=== PATIENT | male | born 1975 | race Caucasian/White ===

== ENCOUNTER 2019-02-23 03:18 | Inpatient (IN) ==
[2019-02-23] MEDS ORDERED: DUONEB (A & A) INH ONE (03:29)
--- NOTE | 2019-02-23 03:38 | PROVIDER DOCUMENTATION ---
HPI-Respiratory General - General Chief Complaint: Shortness of Breath Stated Complaint: sob Time Seen by Provider: 02/23/19 03:27 Source: patient Allergies/Adverse Reactions: Patient Allergies Allergy/AdvReac Type Severity Reaction Status Date / Time Penicillins Allergy HIVES Verified 06/17/18 09:33 Home Medications: Home Medication List Medication Instructions Recorded Confirmed Last Taken Type ATORVAstatin [Lipitor] 40 mg PO QHS #180 tab 04/07/18 06/17/18 06/16/18 Rx Carvedilol [Coreg] 6.25 mg PO Q12H #180 tab 04/07/18 06/17/18 06/17/18 Rx Furosemide [Lasix] 40 mg PO DAILY #180 tab 04/07/18 06/17/18 06/17/18 Rx Potassium Chloride E.r. [Klor-Con] 10 meq PO DAILY #180 tab 04/07/18 06/17/18 06/17/18 Rx Clopidogrel Bisulfate [Plavix] 75 mg PO DAILY 05/29/18 05/29/18 Unknown History Albuterol Sulfate [Albuterol 8.5 gm IH Q4-6H PRN PRN #2 06/17/18 Unknown Rx Sulfate Hfa] hfa.[email or web address] Beet Root 1,000 mg PO DAILY 06/17/18 06/17/18 06/17/18 History - History of Present Illness-Resp Nature of Presenting Problem: Patient states that he began to have a cough and wheezing around 6pm yesterday. It has gotten progressively worse Quality of Pain: reports: fullness, tightness Severity in ED: reports: moderate Onset/Duration: reports: other (9 hours ago) Timing: reports: still present Context: denies: recent foreign travel, insect bite (possible tick), recent chemotherapy, multiple patients with similar complaints, recent URI, out of meds, sports/exercise, aspiration/choking, other Exposure: reports: allergen exposure Cough Quality/Degree: reports: no cough Episode Frequency: occasional episodes Current Respiratory Medication Therapy: Initiated see nurses note Modifying Factors: improves with: exertion Associated Symptoms: reports: cough, shortness of breath, short of breath, wheezing Similar Symptoms Previously?: Yes Recently seen or treated by another doctor?: No Review of Systems - Adult - REVIEW OF SYSTEMS - ADULT Constitutional: reports: no symptoms reported Eyes: reports: no symptoms reported Ears, Nose, Mouth & Throat: reports: no symptoms reported Cardiovascular: reports: chest pain Respiratory: reports: see HPI Gastrointestinal: reports: no symptoms reported Genitourinary: reports: no symptoms reported Musculoskeletal: reports: no symptoms reported Integumentary: reports: no symptoms reported Neurological: reports: no symptoms reported Psychiatric: reports: no symptoms reported Endocrine: reports: no symptoms reported Hematologic/Lymphatic: reports: no symptoms reported Allergic/Immunologic: reports: asthma Past History - Adult - PAST MEDICAL HISTORY-ADULT Review of Records: reports: Old Records Reviewed, Nursing Assessment Review Major Childhood Illnesses: reports: denies history Cardiovascular: reports: CAD, HTN, murmur, ND Respiratory: reports: pneumonia Gastrointestinal: reports: denies history Obstetrical/Gynecological: reports: denies history Genitourinary: reports: denies history Musculoskeletal: reports: denies history Neurological: reports: denies history Endocrine/Immune: reports: denies history Other Conditions: reports: denies history - PRIOR SURGERIES/PROCEDURES Surgical/Procedure History: reports: cardiac stent - IMMUNIZATION STATUS Childhood Immunizations: See Nurse Assessment Flu Vaccine: See Nurse Assessment - FAMILY HISTORY Family History: reviewed, not pertinent Physical Exam-General - PHYSICAL EXAM-ADULT Initial Vital Signs Reviewed: Yes - CONSTITUTIONAL General Appearance: moderate distress - EYES Eyes: PERRL/EOMI, pink conjunctivae, anisocoria - HEAD, EARS, NOSE, MOUTH & THROAT HENMT: normocephalic/atraumatic, moist mucous membranes, normal ENT inspection, TMs normal, pharynx normal - NECK Neck: non-tender, full range of motion, supple, normal inspection - RESPIRATORY Respiratory: respiratory distress, rhonchi, wheezing - CARDIOVASCULAR Cardiovascular: normal peripheral pulses, no edema, tachycardia - GASTROINTESTINAL (ABDOMEN) Abdominal Exam: normal bowel sounds, non tender, soft, no organomegaly, no pulsatile mass - LYMPHATIC Lymphatic: no adenopathy - MUSCULOSKELETAL Back Exam: normal inspection, no CVA tenderness, no vertebral tenderness Extremity: normal range of motion, non-tender, no pedal edema, no calf tenderness - SKIN Integumentary: normal color, diaphoresis - NEUROLOGIC Neurologic: grossly normal - PSYCHIATRIC Psych/Mental Status: normal mood/affect, oriented x 3, anxious Progress - PLAN OF CARE/RESULTS Progress/Plan/Lab Results: Vital Signs - 8 hr 02/23/19 04:00 Pulse Rate 111 H Respiratory Rate 22 O2 Sat by Pulse Oximetry 99 Laboratory Results - last 24 hr 02/23/19 02/23/19 02/23/19 03:36 03:37 03:37 WBC RBC Hgb Hct MCV MCH MCHC RDW Std Deviation Plt Count MPV Immature Gran % (Auto) Neut % (Auto) Lymph % (Auto) Moca % (Auto) Eos % (Auto) Baso % (Auto) Immature Gran # (Auto) Neut # (Auto) Lymph # (Auto) Moca # (Auto) Eos # (Auto) Baso # (Auto) D-Dimer, Quantitative Specimen Type ARTERIAL Sample Site R RADIAL pH 7.44 pCO2 35 pO2 164 H HCO3 24.9 Base Excess -0.1 Oxyhemoglobin 96.7 ABG O2 Sat (Calculated) 15.2 ABG O2 Saturation 100.1 H ABG Carboxyhemoglobin 2.60 H ABG Methemoglobin 0.8 Gabriel Test YES A-a O2 Difference 149.0 Total Hemoglobin 10.9 L Lactate 0.70 Liter Flow 15.0 Blood Gas Modality VENTIMASK FiO2 % 50.0 Sodium 140 Potassium 3.8 Chloride 106 Carbon Dioxide 22 L Anion Gap 12 BUN 14 Creatinine 1.1 Estimated GFR/1.73 m2 > 60 BUN/Creatinine Ratio 13 Glucose 117 H Calculated Osmolality 281 Calcium 8.4 L Total Bilirubin 0.70 AST 31 ALT 29 Alkaline Phosphatase 67 Creatine Kinase 255 H Creatine Kinase Index 1.2 CK-MB (CK-2) 3.04 Troponin T < 0.010 Total Protein 6.6 Albumin 4.0 Globulin 2.6 Albumin/Globulin Ratio 1.5 02/23/19 02/23/19 03:37 03:37 WBC 15.24 H RBC 4.01 L Hgb 12.2 L Hct 36.5 L MCV 91.0 MCH 30.4 MCHC 33.4 RDW Std Deviation 13.9 Plt Count 233 MPV 11.8 H Immature Gran % (Auto) 0.3 Neut % (Auto) 83.2 H Lymph % (Auto) 11.2 L Moca % (Auto) 4.4 Eos % (Auto) 0.7 Baso % (Auto) 0.2 Immature Gran # (Auto) 0.04 Neut # (Auto) 12.69 H Lymph # (Auto) 1.70 Moca # (Auto) 0.67 H Eos # (Auto) 0.11 Baso # (Auto) 0.03 D-Dimer, Quantitative 0.56 H Specimen Type Sample Site pH pCO2 pO2 HCO3 Base Excess Oxyhemoglobin ABG O2 Sat (Calculated) ABG O2 Saturation ABG Carboxyhemoglobin ABG Methemoglobin Gabriel Test A-a O2 Difference Total Hemoglobin Lactate Liter Flow Blood Gas Modality FiO2 % Sodium Potassium Chloride Carbon Dioxide Anion Gap BUN Creatinine Estimated GFR/1.73 m2 BUN/Creatinine Ratio Glucose Calculated Osmolality Calcium Total Bilirubin AST ALT Alkaline Phosphatase Creatine Kinase Creatine Kinase Index CK-MB (CK-2) Troponin T Total Protein Albumin Globulin Albumin/Globulin Ratio Orders Category Date Time Status CHEST-PORTABLE [RAD] Stat Exams 02/23/19 03:28 Taken ABG [RESP] Routine Lab 02/23/19 03:36 Completed CBC WITH ELECTRONIC DIFF [HEME] Stat Lab 02/23/19 03:37 Completed CK PROFILE [SP CHEM] Stat Lab 02/23/19 03:37 Completed COMPREHENSIVE METABOLIC PANEL [CHEM] Stat Lab 02/23/19 03:37 Completed D-DIMER [COAG] Stat Lab 02/23/19 03:37 Completed TROPONIN T Stat Lab 02/23/19 03:37 Completed Albuterol 2.5MG/Ipratrop 0.5MG [Duoneb (A & A)] Med 02/23/19 03:29 Discontinued 3 ml INH NOW ONE Aerosol Treatments Routine Oth 02/23/19 03:29 Active Aerosol Treatments Stat Oth 02/23/19 03:29 Active EKG [EKG] Stat Ther 02/23/19 03:20 Draft Result Diagrams: 02/23/19 03:37 02/23/19 03:37 - XRAY 1 XRAY Study: Chest (bilateral hazy infiltrates) - CONSULTS/PCP/HOSPITALIST Notification #1 *Consult/PCP/Hospitalist*: Grant Time Discussed: 05:36 (will come see) Consult Disposition: Will see in ED Departure - Departure Date of Disposition Decision: 02/23/19 Time of Disposition Decision: 05:37 DIAGNOSIS: COPD exacerbation, Atypical pneumonia Disposition: ADMITTED INPATIENT 09 Certified Medical Emergency: Emergent Condition: Fair Referrals and Follow-Ups: None,PCP [Primary Care Provider] - - Critical Care Note This patient required my direct & personal management of CC.: Yes Total Time (mins): 36 Critical Care Statement: This patient required my direct personal management to treat or rule out processes, the absence of which, could potentiallly result in sudden, clinically significant life or limb threatening deterioration. Attestation - Physician/ ASH Attestation Patient care was provided by Advanced Practice Provider:: No The physician spent face to face time with patient:: Yes Advanced Practice Provider documentation review:: Supervising physician onsite and consulted in the evaluation and care of this patient. The physician did have a face to face encounter with the patient.
[2019-02-23 03:45] LABS: ALLEN TEST YES; BE -0.1 mmoll (-3.0-3.0); BLOOD TYPE ARTERIAL; HCO3-(ACT) 24.9 mmoll (20.0-26.0); METHB 0.8 % (0.0-1.5); O2(CT) 15.2 mL/dL (15.0-23.0); O2HB 96.7 % (95.0-99.0); PCO2(98.6) 35 mmHg (35-45); PO2(98.6) 164 mmHg (60-100); SAMPLE BLOOD; SAO2 100.1 % (95.0-100.0); THB 10.9 g/dL (11.5-17.4); pH(98.6) 7.44 (7.35-7.45)
[2019-02-23 03:46] LABS: MODALITY VENTIMASK
[2019-02-23 03:49] LABS: BASO# 0.03 X1000 (0.0-0.2); BASO% 0.2 % (0.0-0.8); EOS# 0.11 X1000 (0.0-0.7); EOS% 0.7 % (0.0-10.0); HEMATOCRIT 36.5 % (42.0-52.0); HEMOGLOBIN 12.2 g/dL (14.0-18.0); IMM GRAN# 0.04 X1000 (0.0-0.04); IMM GRAN% 0.3 % (0.0-0.5); LYMPH% 11.2 % (20.5-51.1); MCH 30.4 PG (27-31); MCHC 33.4 g/dL (33-37); MONO# 0.67 X1000 (0.11-0.59); MONO% 4.4 % (1.7-9.3); MPV 11.8 FL (7.4-10.4); NEUT# 12.69 X1000 (1.4-6.5); NEUT% 83.2 % (42.2-75.2); PLT 233 X1000 (130-400); RBC 4.01 XMIL (4.7-6.1); RDW 13.9 % (11.5-14.5); WBC 15.24 X1000 (4.8-10.8)
[2019-02-23 04:14] LABS: AGAP 12; ALB/GLOB RATIO 1.5; ALKALINE PHOSPHATASE 67 U/L (32-122); BUN 14 mg/dL (8-22); CALCIUM 8.4 mg/dL (8.8-10.2); CHLORIDE 106 mmol/L (98-107); COSMO 281; CREATININE 1.1 mg/dL (0.7-1.2); ESTIMATED GFR > 60; GLUCOSE 117 mg/dL (70-104); GOT 31 U/L (10-34); GPT 29 U/L (10-44); POTASSIUM 3.8 mmol/L (3.5-5.1); SODIUM 140 mmol/L (136-145); TCO2 22 mmol/L (25-35); TOTAL PROTEIN 6.6 g/dL (6.3-8.3)
[2019-02-23 04:18] LABS: CK PROFILE 255 U/L (24-204)
[2019-02-23 04:34] LABS: CK INDEX 1.2 (0.0-2.5); CK-MB 3.04 ng/mL (0.0-5.0)
--- NOTE | 2019-02-23 04:40 | EKG Report ---
Test Performed on : 02/23/2019 03:28:21 AM Test Reason : shortness of breath Blood Pressure : / mmHG Vent. Rate : 113 BPM Atrial Rate : 113 BPM P-R Int : 160 ms QRS Dur : 100 ms QT Int : 338 ms P-R-T Axes : 056 -05 100 degrees QTc Int : 463 ms Sinus tachycardia. Possible Left atrial enlargement T wave abnormality, consider lateral ischemia Abnormal ECG When compared with ECG of 17-JUN-2018 08:40, No significant change was found Unconfirmed Result
[2019-02-23] MEDS ORDERED: ZOFRAN IV PRN (06:29)
[2019-02-23] MEDS ORDERED: TYLENOL PO PRN (06:29)
[2019-02-23] MEDS ORDERED: NS 1,000 ML IV SCH (06:30)
[2019-02-23] MEDS ORDERED: LOVENOX SUBQ SCH (06:30)
[2019-02-23] MEDS ORDERED: SOLU-MEDROL IV SCH (06:30)
[2019-02-23] MEDS ORDERED: APRESOLINE PO PRN (06:37)
--- NOTE | 2019-02-23 07:22 | Diag Imaging Result Doc PS360 ---
EXAM: CHEST-PORTABLE HISTORY: sob TECHNIQUE: Chest single view COMPARISON: 06/17/2018 FINDINGS: The lungs are well expanded. The heart is mildly enlarged. The vessels aren't distended. No pleural effusions identified. IMPRESSION: Mild cardiomegaly with pulmonary edema. Electronically signed by Amauri Clark 02/23/2019 7:20 AM
--- NOTE | 2019-02-23 08:14 | Diag Imaging Result Doc PS360 ---
EXAM: CT ANGIOGRM PULMONARY ARTERIES HISTORY: d dimer TECHNIQUE: CT chest with intravenous contrast. Pulmonary arterial protocol with MIP images. COMPARISON: 04/04/2018 FINDINGS: There is normal opacification of the pulmonary arteries and their major branches. There is vascular distention and the heart is enlarged. Trace pleural fluid bilaterally. There are enlarged mediastinal and hilar lymph nodes. Dense patchy infiltrates bilaterally in each lobe. IMPRESSION: 1.No pulmonary emboli 2.Cardiomegaly with pulmonary edema and small pleural effusions 3.Multinodular bilateral infiltrates 4.Enlarged mediastinal and hilar lymph nodes similar to the prior exam This exam was performed using automated exposure control, adjustment of mA or kV according to patient size, and/or use of iterative reconstruction technique. Electronically signed by Amauri Clark 02/23/2019 8:12 AM
[2019-02-23] MEDS: PRILOSEC PO SCH (08:23)
[2019-02-23] MEDS: LEVAQUIN 750 MG/D5W 750 MG/150 ML IVPB IV SCH (08:28)
[2019-02-23 08:32] LABS: INR 0.98; PROTIME 13.1 Seconds (11.0-16.0)
[2019-02-23 08:33] LABS: PTT 30.3 Seconds (22.3-41.8)
[2019-02-23] MEDS ORDERED: PRINIVIL PO SCH (09:00)
[2019-02-23] MEDS: LASIX IV SCH ×3 (10:01→22:05)
--- NOTE | 2019-02-23 10:19 | HISTORY AND PHYSICAL ---
CHIEF COMPLAINT: Shortness of breath. HISTORY OF PRESENT ILLNESS: Patient is a 43-year-old male who has a known history of COPD stage 2 diagnosed approximately a year ago as well as coronary artery disease. He had an IL and A stent at age 39. He presented to the hospital noting he has had increased cough, congestion, shortness of breath for the past several days. He thought it was just COPD, he was trying to take guaifenesin at home but this did not help. His cough continued to increase. It is slightly productive. Denies any fevers or chills. ALLERGIES: Penicillin. MEDICATIONS: Lipitor 40, Coreg 6.25 twice daily, Lasix, Plavix, and albuterol. FAMILY HISTORY: Positive for coronary artery disease. SOCIAL HISTORY: He does not smoke or drink. PAST MEDICAL HISTORY: Known coronary artery disease, hypertension, history of IL status post stenting. He has had no other surgical interventions. He does have recurrent pneumonia. REVIEW OF SYSTEMS: Increased cough, congestion, shortness of breath, increased work of breathing, increased dyspnea on exertion. Denies any orthopnea, PND. Denies fevers or chills. Denies headaches, blurred vision, change in vision denies any focalized numbness, tingling, weakness in his extremities. Denies any dysuria, urinary frequency, or urgency. Denies melena, hematochezia. PHYSICAL EXAMINATION: VITAL SIGNS: Reviewed. He is currently afebrile, pulse 100-111, respiratory 22, blood pressure 145/102, saturating 99% on a Venti mask. GENERAL: Patient is pleasant. He is sitting up in the bed. He is able to talk in complete sentences. HEENT: Normocephalic. NECK: Supple. CARDIOVASCULAR: Tachycardia. No murmurs. CHEST: Decreased breath sounds. Bilateral wheezing. No crackles. ABDOMEN: Soft. Nondistended. Positive bowel sounds. EXTREMITIES: Moves all extremities. No edema. NEUROLOGIC: No focal changes. He is awake, alert, oriented. SKIN: Warm, dry, no rashes. ASSESSMENT: 1. Chronic obstructive pulmonary disease with exacerbation. 2. Elevated D-dimer. 3. Leukocytosis at 15. 4. Pneumonia. 5. Known coronary artery disease. PLAN: We will admit patient to the hospital, place him on Levaquin, doxycycline, breathing treatments, oxygen, steroids. We will start lisinopril for his blood pressure. We will check an ultrasound and a CTA for his elevated D-dimer although I expect this is likely chronic due to his stent. We will follow. cc: Uriel Oneil MD
[2019-02-23] MEDS ORDERED: DUONEB (A & A) INH PRN (10:20)
[2019-02-23 11:25] LABS: AGAP 14; BUN 12 mg/dL (8-22); CALCIUM 9.4 mg/dL (8.8-10.2); CHLORIDE 100 mmol/L (98-107); CK PROFILE 252 U/L (24-204); COSMO 276; ESTIMATED GFR > 60; GLUCOSE 145 mg/dL (70-104); POTASSIUM 4.6 mmol/L (3.5-5.1); SODIUM 137 mmol/L (136-145); TCO2 23 mmol/L (25-35)
[2019-02-23] MEDS: DUONEB (A & A) INH SCH ×4 (11:29→23:06)
[2019-02-23] MEDS: ALDACTONE PO SCH (11:42)
[2019-02-23] MEDS: COREG PO SCH ×2 (11:42→23:36)
[2019-02-23 11:51] LABS: CK INDEX 1.2 (0.0-2.5); CK-MB 2.92 ng/mL (0.0-5.0)
--- NOTE | 2019-02-23 12:08 | PROGRESS NOTE ---
DATE: 02/23/2019 SUBJECTIVE: This morning Mr. Ross refers to be doing a little better. He still has a lot of shortness of breath. OBJECTIVE: Vital Signs: Blood pressure is 163/112, pulse 105, and respirations 20. Temperature is not documented. General: Mr. Ross is a 43-year-old gentleman. He is in bed. He seems to be in mild respiratory distress. HEENT: Mucosa is pink and moist. Anicteric. Acyanotic. Neck: Supple. There is positive JVD. Chest: Air entry is bilaterally reduced. There are inspiratory rales and crackles in both lung rios. Cardiovascular: Regular rate and rhythm. There is positive S3. Abdomen: Soft. Minimally tender in the right upper quadrant with positive hepatojugular reflux. Extremities: Maybe a trace of pedal edema. SCALE INSTALLER: The patient is awake alert and oriented. LABORATORY DATA: WBC is 15.24, hemoglobin 12.2, and platelet count 233. ABG was reviewed and unremarkable. Chemistry was also reviewed and was completely unremarkable. Troponin is normal. I did not see any proBNP; we have ordered that. IMAGING STUDIES: A chest x-ray did show mild cardiomegaly with pulmonary edema. A CT of the lungs showed mild pulmonary edema. Cardiomegaly with pulmonary edema and small pleural effusions. Multinodular bilateral infiltrates. ASSESSMENT: 1. Respiratory distress secondary to pulmonary edema from congestive heart failure. 2. Congestive heart failure with systolic dysfunction. 3. History of severe ischemic cardiomyopathy with ejection fraction of 15% to 20% on echocardiogram last year. We will repeat this. 4. Multifocal bilateral infiltrates with elevated white cell count, questionable if there is any superimposed bronchopneumonia/infectious etiology. The patient has been started on an antimicrobial. 5. History of chronic obstructive pulmonary disease. Query mild exacerbation. The patient is on steroids, bronchodilation therapy, and antimicrobials. So, in general Mr. Ross is critically sick. I think his symptoms are more of a congestive heart failure exacerbation versus superimposed pneumonia as well as a COPD exacerbation could all be confounding. He is currently on IV diuretics, antibiotics, steroids, and bronchodilation therapy. We are going to add spironolactone to enhance the Lasix diuretic effect. We will also start the patient on carvedilol to help with better blood pressure control and also to help with the heart failure/coronary artery disease. The patient is planned an evaluation by Cardiology. cc: Pete Crews MD
--- NOTE | 2019-02-23 13:18 | CARDIOLOGY CONSULTATION ---
DATE: 02/23/2019 HISTORY OF PRESENT ILLNESS: Mr. Ross is a 43-year-old male with a history of COPD and heart failure. He reports for 1 to 2 days of shortness of breath and orthopnea. He denies any chest pain. He has a history of heart failure diagnosed approximately 1 year ago with noncompliance with outpatient followup as well as medication compliance. He denies any recent fevers. PAST MEDICAL HISTORY: 1. Significant for coronary disease with cardiac catheterization in March 2018. That study demonstrated a left main that was normal. The left anterior descending showed a patent stent in the mid to the distal portion of the vessel. There were minimal luminal irregularities in the LAD. Circumflex was nondominant. He is free of any obstruction. The right coronary, no obvious obstructive disease. The ejection fraction on that study was 20 to 25 percent. 2. Hypertension noncompliant with medications. 3. Chronic obstructive pulmonary disease. SOCIAL HISTORY: He does not smoke. He admits to drinking wine roughly 1 day a week. FAMILY HISTORY: Significant for coronary disease. REVIEW OF SYSTEMS: A 10 system review of systems is negative except for those mentioned in HPI. PHYSICAL EXAMINATION: Vital Signs: He is afebrile. His heart rate is in the 90s to low 100s. His most recent blood pressure is 140/93. On presentation his systolics were in the 140s with diastolics in the 90s to low 100s. Janine has really no I O data at this point. General: No acute distress. HEENT: Oropharynx is moist. Poor dentition. Eye examination, pink conjunctivae. White sclerae. Neck: Examination shows no obvious thyromegaly or thyroid tenderness. Cardiovascular: He sounds to be in a regular rate and rhythm. No murmurs. He has no S3. He has no lower extremity edema. He has warm and well perfused extremities. Chest: Exam sounds clear bilaterally. He has no increased work of breathing. Abdomen: Soft, nontender, nondistended. He has no obvious organomegaly. Skin: Warm and dry throughout without any rashes. Neurological: He is moving all extremities well. He has no lateralizing deficits. Psychiatric: He is alert, oriented, pleasant. He has no focal deficits. PERTINENT DATA: CT of the chest showed no pulmonary emboli. He had cardiomegaly with pulmonary edema and small pleural effusions. He had a multinodular bilateral infiltrates enlarged mediastinal and hilar lymph nodes consistent with previous studies. His EKG showed sinus rhythm, he had evidence for left ventricular hypertrophy and left atrial enlargement fairly consistent with his old EKG. His white count is 15.2. His hematocrit is 36. His platelet count is 233,000. His sodium is 137, potassium 4.6, BUN 12, creatinine is 1. His proBNP is 2369. Negative cardiac enzymes. ASSESSMENT: Mr. Ross is a 43-year-old gentleman with a history of nonischemic cardiomyopathy and noncompliance with medications. PLAN: We will continue on current medications with a caveat to stop the lisinopril. We will change him to losartan and possibly plan on changing him over to Entresto in the near future. I agree with the Coreg and Aldactone at current doses. I agree with the rosuvastatin that he is currently taking. He currently is on diuresis. I do not have any intake and output data as of yet. We will recheck laboratories in the morning including a proBNP. cc: Robert Farooq MD
[2019-02-23] MEDS: CRESTOR PO SCH (20:06)
[2019-02-23] MEDS: SOLU-MEDROL IV SCH (20:07)
[2019-02-24] MEDS: DUONEB (A & A) INH SCH ×6 (03:33→22:38)
[2019-02-24 05:50] LABS: HEMATOCRIT 39.8 % (42.0-52.0); HEMOGLOBIN 13.2 g/dL (14.0-18.0); MCHC 33.2 g/dL (33-37); MCV 93.4 FL (81-99); RBC 4.26 XMIL (4.7-6.1); RDW 14.2 % (11.5-14.5); WBC 17.55 X1000 (4.8-10.8)
[2019-02-24] MEDS: PRILOSEC PO SCH (06:09)
[2019-02-24] MEDS: LEVAQUIN 750 MG/D5W 750 MG/150 ML IVPB IV SCH (06:09)
[2019-02-24 06:28] LABS: AGAP 12; ALB/GLOB RATIO 1.4; ALBUMIN 4.2 g/dL (3.5-5.0); ALKALINE PHOSPHATASE 64 U/L (32-122); BUN 16 mg/dL (8-22); CHLORIDE 98 mmol/L (98-107); COSMO 273; ESTIMATED GFR > 60; GLUCOSE 132 mg/dL (70-104); GOT 21 U/L (10-34); GPT 28 U/L (10-44); POTASSIUM 4.7 mmol/L (3.5-5.1); SODIUM 135 mmol/L (136-145); TCO2 25 mmol/L (25-35); TOTAL BILIRUBIN 0.79 mg/dL (0.20-1.00); TOTAL PROTEIN 7.1 g/dL (6.3-8.3)
[2019-02-24] MEDS: ASPIRIN PO SCH (09:20)
[2019-02-24] MEDS: LASIX IV SCH (09:20)
[2019-02-24] MEDS: COZAAR PO SCH (09:20)
[2019-02-24] MEDS: COREG PO SCH ×2 (09:20→21:10)
[2019-02-24] MEDS: ALDACTONE PO SCH (09:20)
[2019-02-24] MEDS: SOLU-MEDROL IV SCH (09:21)
[2019-02-24] MEDS: LOVENOX SUBQ SCH (09:21)
--- NOTE | 2019-02-24 10:20 | PROGRESS NOTE ---
DATE: 02/24/2019 INTERVAL HISTORY: No acute events overnight. He states he is feeling better. His shortness of breath is better. His cough is improving. He is not making expectoration as much as he did yesterday. He stated that he has not been compliant with his medication because he ran out of it and that is why probably he developed COPD/CHF exacerbation. VITALS: Currently, temperature 97.5 degrees, pulse 70, respiratory rate 17, blood pressure 110/69, saturating 99% on 4 L nasal cannula. PHYSICAL EXAMINATION: He does not appear in any acute distress. He has poor dental hygiene. No tonsillitis. No cervical lymphadenopathy. Inspiratory crackles at bilateral infrascapular region without wheeze or rhonchi. S1, S2 normal. He has mild systolic crescendo- decrescendo murmur heard at the left sternal border as well as the left intercostal space. No rub or gallop. Abdomen: Soft, nontender. No jugular venous distention. Negative hepatojugular reflex. No lower extremity edema. Input and output suggests -1.4 L. LABS: Suggestive of leukocytosis and normal platelet count. His electrolytes and kidney function are normal and he has decrease in proBNP. Blood cultures are in lab. Urine streptococcal and legionella antigens are not collected. ASSESSMENT AND PLAN: 1. Respiratory distress and acute hypoxic respiratory failure due to acute pulmonary edema from congestive heart failure exacerbation. His EKG had sinus tachycardia and troponins were negative. Follow up echocardiogram. Continue intravenous Lasix and close input and output monitoring. 2. Bilateral patchy bronchopneumonia leading to mild acute chronic obstructive pulmonary disease exacerbation. Continue intravenous levofloxacin. Follow up sputum culture, urine antigens, albuterol ipratropium nebulization, and change steroids to orally. 3. History of coronary artery disease requiring stent in left anterior descending in February of 2017 and congestive heart failure with ejection fraction of 25%. Followup repeat echocardiogram. Continue high-dose statin, aspirin, carvedilol, hydralazine, losartan, and spironolactone. 4. Disposition. I will continue to monitor patient in [facility]. Plan of care discussed with him. All of his questions have been answered. I discussed with the nursing team about decreasing his oxygen. cc: MD LOLITA Christie
--- NOTE | 2019-02-24 13:56 | CARDIOLOGY PROGRESS NOTE ---
DATE: 02/24/2019 SUBJECTIVE: The patient reports his coughing is a little bit better as is his shortness of breath. OBJECTIVE: Vital Signs: He is afebrile. Heart rate of 82. His most recent blood pressure is 95/67. Over the last 12 hours or so, most of his blood pressures have been in the 100s to 120s. His I's and O's for the course of the hospitalization have been negative at 1.8 L. Not a lot of intake is recorded. He has 4 voids not measured. General: He is in no acute distress. Cardiovascular: He sounds to be in a regular rate and rhythm. He has no murmurs. He has no S3. Extremities: He has no lower extremity edema. Chest: Sounds clear. He has no increased work of breathing. Abdomen: Soft and nontender. PERTINENT DATA: Sodium is 135. Potassium is 4.7. His BUN is 16. Creatinine is 1. His proBNP is 1800. His white count is 17. Hematocrit is 39. ASSESSMENT: Mr. Ross is a 43-year-old gentleman with a history of heart failure. PLAN: We will continue with current medications. I have changed him from IV Lasix to oral Lasix. We will plan on checking an echo in the morning. We will continue him on the current medications for the time being. cc: Robert Farooq MD
[2019-02-24] MEDS: CRESTOR PO SCH (21:10)
[2019-02-25] MEDS: DUONEB (A & A) INH SCH ×6 (03:41→22:36)
[2019-02-25 05:40] LABS: BASO# 0.01 X1000 (0.0-0.2); BASO% 0.1 % (0.0-0.8); EOS# 0.01 X1000 (0.0-0.7); EOS% 0.1 % (0.0-10.0); HEMATOCRIT 40.4 % (42.0-52.0); HEMOGLOBIN 13.1 g/dL (14.0-18.0); IMM GRAN# 0.07 X1000 (0.0-0.04); IMM GRAN% 0.4 % (0.0-0.5); LYMPH# 2.31 X1000 (1.2-3.4); LYMPH% 11.8 % (20.5-51.1); MCH 30.1 PG (27-31); MCHC 32.4 g/dL (33-37); MCV 92.9 FL (81-99); MONO# 1.16 X1000 (0.11-0.59); MONO% 5.9 % (1.7-9.3); MPV 12.1 FL (7.4-10.4); NEUT# 15.95 X1000 (1.4-6.5); NEUT% 81.7 % (42.2-75.2); PLT 245 X1000 (130-400); RBC 4.35 XMIL (4.7-6.1); RDW 14.5 % (11.5-14.5); WBC 19.51 X1000 (4.8-10.8)
[2019-02-25 06:06] LABS: AGAP 12; CHLORIDE 99 mmol/L (98-107); GLUCOSE 106 mg/dL (70-104); POTASSIUM 4.4 mmol/L (3.5-5.1); SODIUM 136 mmol/L (136-145); TCO2 25 mmol/L (25-35)
[2019-02-25 06:07] LABS: BUN 23 mg/dL (8-22); CALCIUM 9.2 mg/dL (8.8-10.2); COSMO 276; CREATININE 1.2 mg/dL (0.7-1.2); ESTIMATED GFR > 60; MAGNESIUM 2.3 mg/dL (1.5-2.7)
[2019-02-25] MEDS: PRILOSEC PO SCH (06:18)
--- NOTE | 2019-02-25 07:18 | Diag Imaging Result Doc PS360 ---
EXAM: CHEST-PORTABLE INDICATION: dyspnea TECHNIQUE: One view COMPARISON: 02/23/2019 FINDINGS: There has been interval improvement of pulmonary edema and pulmonary venous congestion to near resolution. No new consolidation is identified. Cardiac silhouette is stable. IMPRESSION: Interval improvement as described. Electronically signed by Clayton Hines 02/25/2019 7:15 AM
[2019-02-25] MEDS: COZAAR PO SCH (08:36)
[2019-02-25] MEDS: LOVENOX SUBQ SCH (08:36)
[2019-02-25] MEDS: ALDACTONE PO SCH (08:36)
[2019-02-25] MEDS: LASIX PO SCH (08:36)
[2019-02-25] MEDS: ASPIRIN PO SCH (08:36)
[2019-02-25] MEDS: LEVAQUIN 750 MG/D5W 750 MG/150 ML IVPB IV SCH (08:36)
[2019-02-25] MEDS: COREG PO SCH ×2 (08:38→21:19)
[2019-02-25] MEDS ORDERED: PREDNISONE PO SCH (09:00)
--- NOTE | 2019-02-25 11:02 | Extremity Venous Study ---
PROCEDURE NAME: Venous U/S Bilateral Legs - 02/23/2019 MULTIFOCAL BUTTON INSPECTOR: Sergio. REQUESTING PHYSICIAN: Dr. Oneil. INDICATIONS: D-dimer 0.56. FINDINGS: The deep and superficial veins of the bilateral lower extremities were visualized along their course. All veins appeared compressible with forward flow and no evidence of intraluminal thrombus. SUMMARY: No deep or superficial venous thrombosis seen in bilateral lower extremities. cc: MD Uriel Lam MD
--- NOTE | 2019-02-25 12:52 | ECHO REPORT ---
ORDER DATE: 02/25/2019 INTERPRETING PHYSICIAN: Alfredo Rodriguez MD ECHOCARDIOGRAPHIC MEASUREMENTS: 1. Interventricular septum 0.7 cm. 2. Left ventricular posterior wall 0.7 cm. 3. Diastolic diameter 7.3 cm. 4. Left atrium 4.8 cm. 5. Aorta 3.2 cm. SUMMARY OF THE 2-DIMENSIONAL IMAGIN. Left atrial enlargement. 2. Left ventricle is dilated with severely reduced systolic function. 3. Estimated ejection fraction of 20%. 4. There is severe global hypokinesis. 5. There is diastolic dysfunction. 6. The aortic valve leaflets are trileaflet. 7. Mitral valve was normal. 8. Tricuspid valve was normal. 9. Pulmonic valve was normal. 10. There is no aortic stenosis or regurgitation. 11. There is mild mitral regurgitation. 12. Mild tricuspid regurgitation. 13. Peak velocity across the tricuspid valve was 2.4 m/sec. 14. Pulmonary artery systolic pressure of 28 mmHg. 15. There is no pericardial effusion or obvious intracardiac mass or thrombus seen. cc: MD Robert Herndon MD
--- NOTE | 2019-02-25 14:29 | EKG Report ---
Test Performed on : 02/25/2019 2:08:40 PM Test Reason : chest pain Blood Pressure : / mmHG Vent. Rate : 094 BPM Atrial Rate : 094 BPM P-R Int : 154 ms QRS Dur : 118 ms QT Int : 366 ms P-R-T Axes : 062 019 088 degrees QTc Int : 457 ms Normal sinus rhythm. Possible Left atrial enlargement Left ventricular hypertrophy with QRS widening ST & T wave abnormality, consider lateral ischemia Abnormal ECG When compared with ECG of 23-FEB-2019 03:28, (Unconfirmed) No significant change was found Confirmed by Asim LEZAMA, MBrigida Talavera ([id number]) on 02/25/2019 4:12:10 PM
--- NOTE | 2019-02-25 16:44 | PROGRESS NOTE ---
DATE: 02/25/2019 SUBJECTIVE: This morning Mr. Ross referred to be doing fairly okay. However, later on, I was told by the nurse that he was having some chest discomfort. An EKG was done which was normal and also his vitals were stable. Cardiology was notified. OBJECTIVE: Vital signs: Currently blood pressure is 128/94, pulse of 91, respirations 17, temperature is 97.8 degrees. Patient was saturating 98% on 2 L. General: Mr. Ross is a 43- year-old gentleman. He is in bed, no distress. HEENT: Mucosa is pink and moist. Anicteric. Acyanotic. Neck: Supple. Chest: Air entry was bilaterally reduced. A few crackles posteriorly. No wheezing. Cardiovascular: Regular rate and rhythm. No murmurs. No rubs. Abdomen: Soft. Minimally tender in the right upper quadrant. Extremities: No pedal edema. COMBAT SYSTEMS OFFICER: Patient is awake, alert, and oriented. There is no focal neurological deficit. LABORATORY DATA: WBC is 19.51, hemoglobin is 13.1, platelet count of 245,000. Chemistry is also reviewed which is completely normal. An echocardiogram this morning shows an ejection fraction of 20% with severe global hypokinesis. The patient's current medications have all been reviewed, no changes. The patient is negative balance of 1,920. ASSESSMENT: 1. Respiratory distress on presentation secondary to pulmonary edema from congestive heart failure and chronic obstructive pulmonary disease exacerbation. 2. Systolic heart failure exacerbation. 3. History of severe ischemic cardiomyopathy. Ejection fraction remains 20% on the latest echo, no changes. The patient is on medications. Cardiology has evaluated him. 4. Multifocal bilateral infiltrate, concerning for bronchopneumonia. The patient is on antimicrobial therapy. 5. Mild chronic obstructive pulmonary disease exacerbation on presentation, improved. PLAN: So in general, I think Mr. Ross seems to be doing a whole lot better. He does not look as congested as he did on presentation. His current echo has not shown any worsening EF. We are going to continue with the current medications. We are pending final recommendations from Cardiology. Hopefully we can get Mr. Ross discharged either today or tomorrow, pending final recommendations from Cardiology. cc: MD LOLITA Harrison
--- NOTE | 2019-02-25 17:33 | CARDIOLOGY PROGRESS NOTE ---
DATE: 02/25/2019 SUBJECTIVE: The patient reports continued mild bouts of coughing; overall, no orthopnea PHYSICAL EXAMINATION: Vital Signs: He is afebrile. Heart rate 82, blood pressure 101/59. His most recent blood pressures have predominantly been in the 100. His I's and O's are difficult to track due non-measured voids. But overall, he is negative for the hospitalization. General: He is in no acute distress. Cardiovascular: He sounds to be in a regular rate and rhythm. I do not hear any obvious murmurs. He has warm and well perfused extremities with no edema. Respiratory: His chest exam is clear bilaterally. He has no increased work of breathing. Gastrointestinal: His abdomen is soft, nontender. PERTINENT DATA: White count 19.5 which has trended up from 15 on presentation. He is notably on some oral steroids. His platelet count is 245,000. His sodium is 136, potassium 4.4, BUN 23, creatinine is 1.2. ASSESSMENT: Mr. Ross is a 43-year-old gentleman who presented with heart failure type symptoms. PLAN: At this point, he is on losartan, spironolactone and Coreg. We will continue on those medications for the time being. He is on oral Lasix and he has had somewhat of a trend up in his BUN and creatinine ratio recently. I do not have any acute recommendations at this time. We transitioned him from IV Lasix yesterday to oral Lasix. cc: Robert Farooq MD
[2019-02-25] MEDS: CRESTOR PO SCH (21:19)
[2019-02-26] MEDS: DUONEB (A & A) INH SCH ×4 (03:49→15:25)
[2019-02-26 05:52] LABS: HEMATOCRIT 40.4 % (42.0-52.0); HEMOGLOBIN 12.9 g/dL (14.0-18.0); MCH 30.4 PG (27-31); MCHC 31.9 g/dL (33-37); MCV 95.1 FL (81-99); MPV 12.1 FL (7.4-10.4); RBC 4.25 XMIL (4.7-6.1); RDW 14.6 % (11.5-14.5); WBC 11.07 X1000 (4.8-10.8)
[2019-02-26] MEDS: PRILOSEC PO SCH (06:09)
[2019-02-26 06:18] LABS: AGAP 11; ALBUMIN 3.7 g/dL (3.5-5.0); BUN 23 mg/dL (8-22); CALCIUM 8.4 mg/dL (8.8-10.2); CHLORIDE 103 mmol/L (98-107); COSMO 283; ESTIMATED GFR > 60; GLUCOSE 94 mg/dL (70-104); PHOSPHORUS 3.4 mg/dL (2.7-4.5); POTASSIUM 4.1 mmol/L (3.5-5.1); SODIUM 140 mmol/L (136-145); TCO2 26 mmol/L (25-35)
[2019-02-26] MEDS: LEVAQUIN 750 MG/D5W 750 MG/150 ML IVPB IV SCH (08:13)
[2019-02-26] MEDS: LASIX PO SCH (08:13)
[2019-02-26] MEDS: COZAAR PO SCH (08:13)
[2019-02-26] MEDS: ASPIRIN PO SCH (08:13)
[2019-02-26] MEDS: COREG PO SCH (08:13)
[2019-02-26] MEDS: ALDACTONE PO SCH (08:13)
[2019-02-26] MEDS: LOVENOX SUBQ SCH (08:13)
[2019-02-26] MEDS ORDERED: PREDNISONE PO SCH (09:00)
[2019-02-26 12:00] VITALS: BP 100/66
--- NOTE | 2019-02-26 22:59 | DISCHARGE SUMMARY ---
ADMISSION DATE: 02/23/2019 DISCHARGE DATE: 02/26/2019 DISPOSITION: Home. FOLLOWUP: Dr. Robert Farooq. CONSULTATIONS: During this admission, Cardiology was consulted. The patient was seen by Dr. Farooq. INVASIVE PROCEDURES: None. DIAGNOSTIC DATA: Imaging studies of significance: A chest x-ray did show mild cardiomegaly with pulmonary edema. Extremity venous showed no DVT. A pulmonary arteriogram showed no pulmonary emboli. There was cardiomegaly with pulmonary edema and small pleural effusions. A repeat chest x-ray did show interval improvement. An echocardiogram showed an ejection fraction of 20% with global hypokinesis. ADMISSION DIAGNOSES: 1. Chronic obstructive pulmonary disease with exacerbation. 2. Elevated D-dimer. 3. Leukocytosis. 4. Pneumonia. DISCHARGE DIAGNOSES: 1. Respiratory distress on presentation, secondary to pulmonary edema from congestive heart failure and chronic obstructive pulmonary disease exacerbation. 2. Systolic heart failure exacerbation. 3. Severe ischemic cardiomyopathy with ejection fraction of 20%. 4. Multifocal bilateral infiltrate concerning for bronchopneumonia. 5. Chronic obstructive pulmonary disease with mild exacerbation. DISCHARGE MEDICATIONS: 1. Atorvastatin 40 mg p.o. at bedtime. 2. Carvedilol 6.25 b.i.d. 3. Furosemide 40 mg p.o. daily. 4. Spironolactone 25 mg p.o. daily. 5. Hydralazine 25 mg p.o. q.6 p.r.n. 6. Aspirin 81 mg p.o. daily. 7. Losartan 25 mg p.o. daily. 8. Furosemide 40 mg p.o. daily. 9. Levaquin 500 mg p.o. daily. 10. Omeprazole 40 mg p.o. daily. 11. Spiriva 2.5 mcg inhaler daily. 12. Prednisone 20 mg p.o. daily. PRESENTING COMPLAINT: Shortness of breath. HISTORY OF PRESENT COMPLAINT: Mr. Ross is a 43-year-old male who is known to have severe dilated ischemic cardiomyopathy and COPD. He came to the emergency department because of shortness of breath. The patient was initially seen in [place] and found to be in COPD exacerbation, respiratory distress and also congestive heart failure. He was transferred from [place] to [facility] for higher level of care. HOSPITAL COURSE: Mr. Ross was admitted to the cardiac floor, was on telemetry. He was initially started on IV diuretic therapy and also standard care for his COPD exacerbation. The patient was seen by Cardiology. There was some titration to his medication. During the hospital course Mr. Ross improved. He diuresed very well. A followup chest x-ray showed a lot of improvement. This morning Mr. Ross is clinically stable for discharge. His current vital signs: Blood pressure is 100/66, pulse of 78, respirations 15, temperature 98.3 degrees. The patient has been given refill prescriptions for all his medications. We will also consult Social Work for medication assistance. We feel Mr. Ross is clinically stable. He has been advised on medication compliance and to also follow up with his appointment accordingly. All the discharge instructions have been discussed with Mr. Ross. He voiced understanding. Time spent for discharge is 35 minutes. cc: MD Robert Harrison MD
== END 2019-02-26 15:57 | disposition home or self-care (01) | DRG 291 ==
LOC: SUATTDRO → ED 03:18 → SUATTDRO 09:05 → 4N 09:05 → 3S 09:32
PROVIDERS: ATTEND Internal Medicine

== ENCOUNTER 2019-06-30 05:25 | Inpatient (IN) ==
--- NOTE | 2019-06-30 06:08 | PROVIDER DOCUMENTATION ---
HPI-General Adult - General Chief Complaint: Shortness of Breath Stated Complaint: EDEMA IN LEGS, [id number] WI PT. Time Seen by Provider: 06/30/19 05:44 Source: patient Allergies/Adverse Reactions: Patient Allergies Allergy/AdvReac Type Severity Reaction Status Date / Time Penicillins Allergy HIVES Verified 06/30/19 06:02 Home Medications: Home Medication List Medication Instructions Recorded Confirmed Last Taken Type Aspirin 1 tab PO TID 06/30/19 06/30/19 06/29/19 History - History of Present Illness -Gen Adult Nature of Presenting Problems: 44 y/o M presents to the ED complaining of 1 month of progressively worsening shortness of breath with cough a productive of clear/white sputum. States last night he also noted that he had some BL pedal edema which resolved with elevation of his legs. no fever, no uri type symptoms. States he had an WI several years ago but has not followed up and has been out of all of his meds for about 1 month. No chest pain. Review of Systems - Adult - REVIEW OF SYSTEMS - ADULT Constitutional: reports: no symptoms reported Eyes: reports: no symptoms reported Ears, Nose, Mouth & Throat: reports: no symptoms reported Cardiovascular: reports: edema. denies: chest pain Respiratory: reports: cough, shortness of breath Gastrointestinal: reports: no symptoms reported Genitourinary: reports: no symptoms reported Musculoskeletal: reports: no symptoms reported Integumentary: reports: no symptoms reported Neurological: reports: no symptoms reported Psychiatric: reports: no symptoms reported Endocrine: reports: no symptoms reported Hematologic/Lymphatic: reports: no symptoms reported Allergic/Immunologic: reports: no symptoms reported All Other Systems: Reviewed and Negative Past History - Adult - PAST MEDICAL HISTORY-ADULT Review of Records: reports: Old Records Reviewed, Nursing Assessment Review, Medications Reviewed, Social history reviewed & non-contributory. Major Childhood Illnesses: reports: denies history Cardiovascular: reports: CAD, HTN, murmur, WI Respiratory: reports: pneumonia Gastrointestinal: reports: denies history Obstetrical/Gynecological: reports: denies history Genitourinary: reports: denies history Musculoskeletal: reports: denies history Neurological: reports: denies history Endocrine/Immune: reports: denies history Other Conditions: reports: denies history - PRIOR SURGERIES/PROCEDURES Surgical/Procedure History: reports: cardiac stent - IMMUNIZATION STATUS Childhood Immunizations: See Nurse Assessment Flu Vaccine: See Nurse Assessment - FAMILY HISTORY Family History: reviewed, not pertinent Physical Exam-General - PHYSICAL EXAM-ADULT Initial Vital Signs Reviewed: Yes - CONSTITUTIONAL General Appearance: appears well, alert, no apparent distress - EYES Eyes: PERRL/EOMI - HEAD, EARS, NOSE, MOUTH & THROAT HENMT: normocephalic/atraumatic, moist mucous membranes, normal ENT inspection - NECK Neck: non-tender, full range of motion, supple - RESPIRATORY Respiratory: chest non-tender, lungs clear, normal breath sounds - CARDIOVASCULAR Cardiovascular: normal peripheral pulses, regular rate, rhythm, no edema, no JVD - GASTROINTESTINAL (ABDOMEN) Abdominal Exam: non tender, soft - MUSCULOSKELETAL Back Exam: normal inspection, no CVA tenderness, no vertebral tenderness Extremity: normal range of motion, non-tender, no pedal edema - SKIN Integumentary: normal color, normal turgor, warm/dry - NEUROLOGIC Neurologic: grossly normal, no motor/sensory deficits - PSYCHIATRIC Psych/Mental Status: normal mood/affect, normal thought content, normal thought process, oriented x 3 Progress - PLAN OF CARE/RESULTS Progress/Plan/Lab Results: Vital Signs - 8 hr 06/30/19 05:33 Temperature 97.9 F Pulse Rate 104 H Respiratory Rate 22 Blood Pressure 156/118 O2 Sat by Pulse Oximetry 95 Orders Category Date Time Status IV Insertion ORDERED Care 06/30/19 05:58 Active cxr [CHEST-2 VIEWS] [RAD] Stat Exams 06/30/19 05:58 Ordered BASIC METABOLIC PANEL [CHEM] Stat Lab 06/30/19 05:58 Uncollected CBC WITH DIFF [HEME] Stat Lab 06/30/19 05:58 Uncollected PRO B-NATRIURETIC PEPTIDE Stat Lab 06/30/19 05:58 Uncollected TROPONIN T Stat Lab 06/30/19 05:58 Uncollected EKG [EKG] Stat Ther 06/30/19 05:38 Ordered dyspnea with cough and pedal edema will further evaluate for causes including but not limited to acs, chf, pna, arf, pe, ptx Result Diagrams: 06/30/19 06:15 06/30/19 06:15 - REASSESSMENT Reassessment #1 Time Reassessed: 08:04 Status: unchanged (Seen and examined by me. Case discussed with Dr. Trammell at shift change. Patient has CHF exacerbation, non-compliant with meds with a history of CHF class IV. Will give IV lasix, IV enalapril, NTP, PO ASA and SQ lovenox and admit.) - EKG 1 Time of EKG reading by physician:: 05:49 EKG Read and Signed by:: Crista Trammell EKG Interpretation (*Must complete 3 of following elements*): Abnormal (Sinus Tachycardia, rate 104, nonspecific t wave abnormalities. No acute st changes, normal axis and intervals) - XRAY 1 XRAY Study: Chest Impression: Abnormal (Read by me at 0800. CM, no infiltrates. Positive cephalization of veins) - CONSULTS/PCP/HOSPITALIST Notification #1 *Consult/PCP/Hospitalist*: TRINA Maxwell Time Discussed: 08:05 Reason/Comments: admit Consult Disposition: Will see in ED, Admit Departure - Departure Date of Disposition Decision: 06/30/19 Time of Disposition Decision: 08:05 DIAGNOSIS: Non compliance w medication regimen, Hypoxemia CHF (congestive heart failure), NYHA class IV Qualifiers: Congestive heart failure type: diastolic Congestive heart failure chronicity: acute on chronic Qualified Code(s): I50.33 - Acute on chronic diastolic (congestive) heart failure Acute exacerbation of CHF (congestive heart failure) Qualifiers: Heart failure type: diastolic Qualified Code(s): I50.33 - Acute on chronic diastolic (congestive) heart failure Disposition: ADMITTED INPATIENT 09 Certified Medical Emergency: Emergent Condition: Fair Referrals and Follow-Ups: None,PCP [Primary Care Provider] - - Critical Care Note This patient required my direct & personal management of CC.: Yes Total Time (mins): 35 (management of HTN, CHF, IV cardiac meds) Critical Care Statement: This patient required my direct personal management to treat or rule out processes, the absence of which, could potentiallly result in sudden, clinically significant life or limb threatening deterioration. Attestation - Physician/ ASH Attestation Patient care was provided by Advanced Practice Provider:: No The physician spent face to face time with patient:: Yes Advanced Practice Provider documentation review:: Supervising physician onsite and consulted in the evaluation and care of this patient. The physician did have a face to face encounter with the patient.
--- NOTE | 2019-06-30 06:19 | EKG Report ---
Test Performed on : 06/30/2019 05:48:08 AM Test Reason : SOB Blood Pressure : / mmHG Vent. Rate : 104 BPM Atrial Rate : 104 BPM P-R Int : 150 ms QRS Dur : 094 ms QT Int : 356 ms P-R-T Axes : 065 -17 087 degrees QTc Int : 468 ms Sinus tachycardia. Possible Left atrial enlargement Nonspecific T wave abnormality Abnormal ECG When compared with ECG of 25-FEB-2019 14:08, ST no longer elevated in Anterior leads Nonspecific T wave abnormality has replaced inverted T waves in Lateral leads Unconfirmed Result
[2019-06-30 06:47] LABS: BASO# 0.02 X1000 (0.0-0.2); BASO% 0.2 % (0.0-0.8); EOS# 0.05 X1000 (0.0-0.7); EOS% 0.4 % (0.0-10.0); HEMOGLOBIN 13.1 g/dL (14.0-18.0); IMM GRAN# 0.04 X1000 (0.0-0.04); IMM GRAN% 0.3 % (0.0-0.5); LYMPH# 1.59 X1000 (1.2-3.4); LYMPH% 13.3 % (20.5-51.1); MCV 90.7 FL (81-99); MONO# 0.69 X1000 (0.11-0.59); MONO% 5.8 % (1.7-9.3); MPV 11.1 FL (7.4-10.4); NEUT# 9.61 X1000 (1.4-6.5); PLT 328 X1000 (130-400); RBC 4.52 XMIL (4.7-6.1); RDW 15.4 % (11.5-14.5)
[2019-06-30 07:14] LABS: AGAP 15; BUN 18 mg/dL (8-22); CALCIUM 9.2 mg/dL (8.8-10.2); CHLORIDE 102 mmol/L (98-107); COSMO 276; ESTIMATED GFR > 60; GLUCOSE 95 mg/dL (70-104); POTASSIUM 4.6 mmol/L (3.5-5.1); SODIUM 137 mmol/L (136-145); TCO2 20 mmol/L (25-35)
[2019-06-30] MEDS ORDERED: LASIX IV ONE (07:58)
[2019-06-30] MEDS ORDERED: NITROGLYCERIN TOP ONE (07:59)
[2019-06-30] MEDS ORDERED: ASPIRIN PO ONE (07:59)
[2019-06-30] MEDS ORDERED: LOVENOX 1 MG/KG SUBQ ONE (08:01)
[2019-06-30] MEDS ORDERED: VASOTEC IV ONE (08:01)
[2019-06-30] MEDS ORDERED: DUONEB (A & A) INH PRN (08:24)
[2019-06-30] MEDS ORDERED: ZOFRAN IV PRN (08:24)
[2019-06-30] MEDS ORDERED: LOVENOX SUBQ SCH (08:24)
[2019-06-30] MEDS ORDERED: APRESOLINE IV PRN (08:31)
[2019-06-30] MEDS ORDERED: LOVENOX SUBQ ONE (09:15)
[2019-06-30 09:39] LABS: INR 1.38; PROTIME 17.2 Seconds (11.0-16.0)
[2019-06-30 09:47] LABS: ALBUMIN 3.2 g/dL (3.5-5.0); DIRECT BILIRUBIN 0.2 mg/dL (0.00-0.20); TOTAL BILIRUBIN 0.73 mg/dL (0.20-1.00); TOTAL PROTEIN 6.4 g/dL (6.3-8.3)
--- NOTE | 2019-06-30 09:56 | Diag Imaging Result Doc PS360 ---
EXAM: CHEST-2 VIEWS - 06/30/2019 HISTORY: cough TECHNIQUE: Chest two views COMPARISON: 02/25/2019 portable chest FINDINGS: There is cardiomegaly. There is mild prominence of lower lung interstitial markings. There is no dense consolidation, substantial pleural effusion, or pneumothorax identified. IMPRESSION: Cardiomegaly, with possible mild interstitial edema. Electronically signed by Anshul Pal 06/30/2019 9:54 AM
[2019-06-30 09:57] LABS: URINE SOURCE CLEAN CATCH
[2019-06-30 09:58] LABS: BILIRUBIN URINE NEGATIVE (NEGATIVE); BLOOD URINE SMALL (NEGATIVE); COLOR YELLOW; GLUCOSE URINE NEGATIVE (NEGATIVE); KETONE URINE NEGATIVE (NEGATIVE); LEUKOCYTES URINE NEGATIVE (NEGATIVE); NITRITE URINE NEGATIVE (NEGATIVE); PH URINE 5.5; PROTEIN URINE 100 mg/dL (NEGATIVE); SP GRAVITY URINE 1.042; TURBIDITY URINE CLEAR (CLEAR); UROBILINOGEN URINE NORMAL (NORMAL)
[2019-06-30 10:00] LABS: UR EPITHELIAL CELLS <10 /HPF (<10); URINE BACTERIA NEGATIVE /HPF; URINE RBC <10 /HPF (<10); URINE WBC <10 /HPF (<10)
[2019-06-30] MEDS: COREG PO SCH ×2 (11:55→20:59)
--- NOTE | 2019-06-30 14:27 | HISTORY AND PHYSICAL ---
PRIMARY CARE PROVIDER: No one. CHIEF COMPLAINT: Cough and swelling of the lower extremities. HISTORY OF PRESENT ILLNESS: Mr. Samir Ross is a 44-year-old male with a medical history of COPD, chronic systolic congestive heart failure with diastolic dysfunction, coronary artery disease with a myocardial infarction in 2017 who presents with complaints of a 1 month cough progressively getting worse, coughing up clear colored phlegm, and then started noticing he was having swelling in his lower extremities last night. In addition to that he is having some shortness of breath, but denied any fever, chills, nausea, vomiting, diarrhea. No chest pain. No other complaints. Workup reveals he has got an acute on chronic systolic congestive heart failure with a proBNP of 4900. He also has a D-dimer that is elevated so we are going to work that up as well to rule out pulmonary emboli. PAST MEDICAL HISTORY: 1. Seasonal allergies. 2. Positive murmur. 3. COPD. 4. Coronary artery disease with SD in 2017 that included a stent. 5. Hypertension. 6. Anxiety. 7. Systolic congestive heart failure. 8. Diastolic dysfunction. 9. Medication noncompliance due to financial stress. SOCIAL HISTORY: He started smoking at the age of 17. He was a 1 pack per day smoker until 2017. He drinks 1 glass of wine about every 2 or 3 weeks. He denies any illicit drug use. He just started working at a place called [employer] about a month ago and he actually enjoys working there. FAMILY HISTORY: Mother had congestive heart failure, coronary artery disease. Father was an alcoholic and had pancreatitis. On the mother's side, all the men in the family have early coronary artery disease with heart attack. ALLERGIES: Penicillin causes hives. HOME MEDICATIONS: He states he takes aspirin 325 three times a day. His medication list from February 2019 is supposed to be: 1. Lipitor 40. 2. Coreg 6.25 twice daily. 3. Lasix. 4. Plavix. 5. Albuterol. He states that he does not have any of these medications and that he is hoping to have insurance soon. REVIEW OF SYSTEMS: Fourteen point review of systems are complete and all were negative except for those mentioned above in the HPI. PHYSICAL EXAMINATION: VITAL SIGNS: Temperature 97.9 degrees, heart rate 98, respiratory rate 18, blood pressure 141/107, O2 saturation 95%. GENERAL: Samir Ross is a 44-year-old male who is in no acute distress. He is able answer questions appropriately. HEENT: Atraumatic, normocephalic. Pupils equal, round, reactive to light. Extraocular movements intact. Mucous membranes are moist. NECK: Trachea midline. CARDIOVASCULAR: S1, S2. Tachycardic rate and rhythm. Grade 3/6 systolic ejection murmur. No rubs or gallops. He has got 1+ lower extremity edema. +2 dorsalis and radial pulses. He has positive JVD. Negative for carotid bruits. He has got +2 dorsalis and radial pulses. PULMONARY: Clear to auscultate. Crackles in the bases. No accessory muscle use or work of breathing noted. GASTROINTESTINAL: Soft, nontender, nondistended. Positive bowel sounds x4. EXTREMITIES: Moves all extremities equally. Full range of motion. NEUROLOGIC: A and O x3. Follows commands. Sensory is intact. SKIN: Warm, dry, intact. LABORATORY DATA: White blood cells 12,000, hemoglobin 13, hematocrit 41, platelet count 328,000. INR is 1.38, PTT is 30. D-dimer is 1.35. Sodium 137, potassium 4.6, BUN 18, creatinine is 1.0, glucose 95, calcium 9.2, bilirubin 0.73, AST 160, ALT 145. Troponin 0.015. ProBNP 4900. Albumin 3.2. Lactate 1.2. Urinalysis: 100 protein, small blood. IMAGING DATA: Chest x-ray: Cardiomegaly with possible mild interstitial edema. There are no dense consolidations. EKG: Sinus tachycardia rate 104, QTc was 468. ASSESSMENT/PLAN: 1. Acute on chronic systolic congestive heart failure with diastolic dysfunction and medication noncompliance. He has not been on medications because he says he cannot afford them, so he is going to get Lasix. He is going to get Coreg. We will put him on a statin and aspirin. 2. History of coronary artery disease and myocardial infarction with cardiac stent back in 2017. He denies any chest pain. There is no elevation in cardiac enzymes. Continue with aspirin, beta sarita, and statin. 3. Chronic obstructive pulmonary disease, p.r.n. nebulizers added. 4. Deep venous thrombosis prophylaxis. Lovenox. Dictated by TRINA Ireland for Mitesh Estevez MD cc: TRINA Ireland MD
--- NOTE | 2019-06-30 14:37 | HISTORY AND PHYSICAL ---
ADDENDUM REPORT The patient was seen and examined by me [id number]. All the laboratory, vital signs and images were reviewed. The patient presented to the emergency department today due to shortness of breath and lower extremity swelling. As per the patient, the swelling started yesterday, and shortness of breath has been at least 1 to 2 weeks. He stated that it started when the cold started. This patient has not been taking his medication for a month because he cannot afford the medications. As per the patient, he has been having some financial issues, and one of the things that he needs to stop are the medications because of that. His chest x-ray showed cardiomegaly with some interstitial edema. His D-dimer is elevated, and it has been elevated before x2. The past couple times we did a pulmonary arteriogram, and both times have been negative for PE. Since this patient has been having before some acute kidney injury and since we are going to start this patient on nephrotoxic medications like Lasix and also losartan, I will go ahead and do a V/Q scan instead of a CT angiogram to avoid contrast. I do not think he has a PE at this moment. I do believe it is just CHF exacerbation. His last echocardiogram was done on 02/25/2019 and showed a really low ejection fraction at 20% with severe global hypokinesis. I wonder if this patient should be on Entresto to help with his heart condition, but he is not compliant with the medications. Physical exam showed some crackles bilaterally mostly at the bases with decreased breath sounds globally, with prolonged expiratory phase. On the other hand, he has a history of COPD. He is hypoxemic due to the CHF exacerbation, and like I said, he is not compliant with the medications. Hypertensive heart disease, history of WI, status post stenting. This patient will be admitted to the [facility]. He is going to be placed on Lasix. I will add spironolactone, losartan, carvedilol and Lipitor, aspirin and breathing treatment as needed. I will get a V/Q scan tomorrow and also I will get a lower extremity Doppler ultrasound. He has been placed on Lovenox 40 mg subcu every 24 hours. I agree with the rest of the nurse practitioner's assessment and plan. cc: Mitesh Estevez MD
[2019-06-30] MEDS: COZAAR PO SCH (16:59)
[2019-06-30] MEDS: ALDACTONE PO SCH (16:59)
[2019-06-30] MEDS: LASIX IV SCH (20:59)
[2019-06-30] MEDS: LIPITOR PO SCH (20:59)
[2019-07-01 06:18] LABS: BASO# 0.03 X1000 (0.0-0.2); BASO% 0.3 % (0.0-0.8); EOS# 0.15 X1000 (0.0-0.7); EOS% 1.4 % (0.0-10.0); HEMATOCRIT 39.8 % (42.0-52.0); HEMOGLOBIN 12.6 g/dL (14.0-18.0); IMM GRAN# 0.04 X1000 (0.0-0.04); IMM GRAN% 0.4 % (0.0-0.5); LYMPH# 2.18 X1000 (1.2-3.4); LYMPH% 20.3 % (20.5-51.1); MCHC 31.7 g/dL (33-37); MCV 91.7 FL (81-99); MONO# 0.66 X1000 (0.11-0.59); MONO% 6.1 % (1.7-9.3); MPV 10.9 FL (7.4-10.4); NEUT# 7.69 X1000 (1.4-6.5); NEUT% 71.5 % (42.2-75.2); PLT 289 X1000 (130-400); RBC 4.34 XMIL (4.7-6.1); RDW 15.7 % (11.5-14.5); WBC 10.75 X1000 (4.8-10.8)
[2019-07-01 07:08] LABS: ALB/GLOB RATIO 0.9; ALBUMIN 2.8 g/dL (3.5-5.0); CALCIUM 8.8 mg/dL (8.8-10.2); CREATININE 1.3 mg/dL (0.7-1.2); MAGNESIUM 1.6 mg/dL (1.5-2.7); POTASSIUM 3.9 mmol/L (3.5-5.1); TOTAL BILIRUBIN 0.91 mg/dL (0.20-1.00); TOTAL PROTEIN 5.8 g/dL (6.3-8.3)
--- NOTE | 2019-07-01 07:16 | EKG Report ---
Test Performed on : 07/01/2019 06:48:51 AM Test Reason : chest pain Blood Pressure : / mmHG Vent. Rate : 092 BPM Atrial Rate : 092 BPM P-R Int : 160 ms QRS Dur : 104 ms QT Int : 382 ms P-R-T Axes : 061 -19 093 degrees QTc Int : 472 ms Sinus rhythm. with occasional premature ventricular complexes. Possible Left atrial enlargement T wave abnormality, consider lateral ischemia Prolonged QT Abnormal ECG When compared with ECG of 30-JUN-2019 05:48, (Unconfirmed) premature ventricular complexes. are now present Confirmed by Pina LEZAMA, Luis ([id number]) on 07/01/2019 8:32:10 AM
--- NOTE | 2019-07-01 08:41 | Diag Imaging Result Doc PS360 ---
EXAM: CHEST-2 VIEWS HISTORY: R/O PE TECHNIQUE: Two views COMPARISON: 06/30/2019 FINDINGS: The lungs are well expanded. The heart remains enlarged. There is mild pulmonary edema. No pleural effusions. No consolidation. IMPRESSION: Cardiomegaly with pulmonary edema Electronically signed by Amauri Clark 07/01/2019 8:39 AM
--- NOTE | 2019-07-01 08:58 | Diag Imaging Result Doc PS360 ---
EXAM: LUNG SCAN / VQ HISTORY: R/O PE TECHNIQUE: Nuclear medicine ventilation/perfusion lung scan COMPARISON: Recent chest x-ray FINDINGS: 41.1 mCi DTPA used for the ventilation images. 6.0 mCi MAA given intravenously for the perfusion images. There are no wedge shaped perfusion defects. No ventilation perfusion mismatches. IMPRESSION: No evidence of a pulmonary embolus Electronically signed by Amauri Clark 07/01/2019 8:56 AM
[2019-07-01] MEDS: ASPIRIN PO SCH (10:04)
[2019-07-01] MEDS: ALDACTONE PO SCH (10:04)
[2019-07-01] MEDS: LOVENOX SUBQ SCH (10:04)
[2019-07-01] MEDS: LASIX IV SCH ×2 (10:04→21:38)
[2019-07-01] MEDS: COZAAR PO SCH (10:04)
[2019-07-01] MEDS: COREG PO SCH ×2 (10:04→21:39)
--- NOTE | 2019-07-01 15:49 | PROGRESS NOTE ---
DATE: 07/01/2019 SUBJECTIVE: This morning Mr. Ross refers to be doing well. Still has some residual shortness of breath. OBJECTIVE: Vital signs: Blood pressure is 112/77, pulse of 90, respirations 21, temperature is 98.6 degrees. General: Mr. Ross is a 44-year-old gentleman. He is in bed, no distress. HEENT: Mucosa is pink and moist. Anicteric. Acyanotic. Neck: Supple. Positive JVD. Chest: Air entry is bilaterally reduced. Some distant crackles in the posterior lung rios bilaterally. Cardiovascular: Regular rate and rhythm. Abdomen: Soft, distended but nontender. Bowel sounds present. Extremities: About 2+ pedal edema. MEDICAL OFFICE SECRETARY: Patient is awake, alert, and oriented. LABORATORY DATA: WBC is 10.75, hemoglobin is 12.6, platelet count of 289,000. Chemistry is also reviewed. Creatinine is 1.2. Rest of chemistry is unremarkable. AST and ALT are slightly elevated but they are coming down. Pro B was 4900. IMAGING STUDIES: A chest x-ray showed cardiomegaly with possible mild interstitial edema. A V/Q scan showed no evidence of pulmonary embolism. Repeat chest x-ray this morning showed cardiomegaly with pulmonary edema. ASSESSMENT: 1. Acute hypoxemic respiratory failure secondary to pulmonary edema. 2. Pulmonary edema with cardiomegaly on imaging associated with elevated pro B consistent of congestive heart failure. 3. History of dilated ischemic and nonischemic cardiomyopathy. Ejection fraction of 20% on an echo done 02/25/2019. 4. History of coronary artery disease status post stents in LAD. The patient had a left heart catheterization over here in March 2018 where there was mention of a mild coronary artery disease with stent in LAD. The rest of the other branches seems to be unremarkable. 5. Transaminitis presumably from congestive hepatopathy. We will continue to follow this up. cc: MD Mitesh Harrison MD MTDD
[2019-07-01] MEDS: LIPITOR PO SCH (21:39)
[2019-07-02] MEDS: TYLENOL PO PRN ×2 (04:19→21:36)
[2019-07-02 06:18] LABS: BASO# 0.02 X1000 (0.0-0.2); BASO% 0.2 % (0.0-0.8); EOS# 0.12 X1000 (0.0-0.7); EOS% 1.3 % (0.0-10.0); HEMATOCRIT 39.2 % (42.0-52.0); HEMOGLOBIN 12.3 g/dL (14.0-18.0); IMM GRAN# 0.02 X1000 (0.0-0.04); IMM GRAN% 0.2 % (0.0-0.5); LYMPH# 1.36 X1000 (1.2-3.4); LYMPH% 15.2 % (20.5-51.1); MCH 28.9 PG (27-31); MCHC 31.4 g/dL (33-37); MONO# 0.67 X1000 (0.11-0.59); MONO% 7.5 % (1.7-9.3); MPV 11.3 FL (7.4-10.4); NEUT# 6.75 X1000 (1.4-6.5); NEUT% 75.6 % (42.2-75.2); PLT 272 X1000 (130-400); RBC 4.26 XMIL (4.7-6.1); RDW 15.6 % (11.5-14.5); WBC 8.94 X1000 (4.8-10.8)
[2019-07-02 06:36] LABS: AGAP 13; ALB/GLOB RATIO 0.9; ALBUMIN 2.8 g/dL (3.5-5.0); ALKALINE PHOSPHATASE 87 U/L (32-122); BUN 16 mg/dL (8-22); CALCIUM 8.3 mg/dL (8.8-10.2); CHLORIDE 95 mmol/L (98-107); COSMO 271; ESTIMATED GFR > 60; GLUCOSE 97 mg/dL (70-104); GOT 55 U/L (10-34); GPT 88 U/L (10-44); MAGNESIUM 1.8 mg/dL (1.5-2.7); POTASSIUM 3.6 mmol/L (3.5-5.1); SODIUM 135 mmol/L (136-145); TCO2 27 mmol/L (25-35); TOTAL PROTEIN 5.8 g/dL (6.3-8.3)
[2019-07-02] MEDS: LASIX IV SCH (09:29)
[2019-07-02] MEDS: COREG PO SCH ×2 (09:30→21:39)
[2019-07-02] MEDS: ALDACTONE PO SCH (09:30)
[2019-07-02] MEDS: ASPIRIN PO SCH (09:30)
[2019-07-02] MEDS: LOVENOX SUBQ SCH (09:30)
[2019-07-02] MEDS: COZAAR PO SCH (09:30)
--- NOTE | 2019-07-02 18:20 | PROGRESS NOTE ---
DATE: 07/02/2019 SUBJECTIVE: This morning Mr. Ross refers to be doing a lot better. He said his cough has significantly improved as well as shortness of breath. Lower extremity edema is almost completely resolved. OBJECTIVE: Vital Signs: Blood pressure 107/75, pulse of 108, respirations 18, temperature is 97.9 degrees. General: Mr. Ross is a 44-year-old male. He is in bed. No distress. HEENT: Mucosa is pink and moist. Anicteric. Acyanotic. Neck: Neck is supple There was very mild JVD. Chest: Good air entry bilateral. No crepitations. No rhonchi. Cardiovascular: Regular rate and rhythm. There is about 2/3 systolic murmur at the 4th to 5th parasternal area on the left. Abdomen: Soft, nontender. Bowel sounds present. Extremities: Trace pedal edema the ankle. Central Nervous System: Patient is awake, alert, and oriented. LABORATORY DATA: CBC is unremarkable. Chemistry shows sodium of 135. Rest of chemistry is unremarkable. AST and ALT trending down. Creatinine has normalized. The patient's I's and O's: Urine output is 2300, has currently negative balance of 5231. CURRENT MEDICATIONS: Have all been reviewed. We are going to switch patient's IV Lasix to p.o. today. ASSESSMENT: 1. Acute hypoxemic respiratory failure on presentation secondary to pulmonary edema, improved. 2. Pulmonary edema secondary to congestive heart failure exacerbation. 3. History of dilated nonischemic and ischemic cardiomyopathy with ejection fraction of 20% on an echo done on 02/25/2019. 4. History of coronary artery disease status post stent in the left anterior descending. 5. Transaminitis secondary to congestive hepatopathy. Liver enzymes trending down. 6. Remote history of chronic obstructive pulmonary disease, currently not in exacerbation. PLAN: The patient's current medications have all been reviewed. As I said, he is getting near euvolemic status. We are going to switch his IV Lasix to p.o. Continue to monitor him another day. Hopefully get him discharged tomorrow pending his labs and clinical evaluation. cc: MD Mitesh Harrison MD
[2019-07-02] MEDS: LIPITOR PO SCH (21:36)
[2019-07-02] MEDS: LASIX PO SCH (21:39)
[2019-07-02] MEDS ORDERED: AYR NASAL SPRAY NAS PRN (21:51)
[2019-07-03] MEDS: TYLENOL PO PRN (03:39)
[2019-07-03 06:43] LABS: BASO# 0.01 X1000 (0.0-0.2); BASO% 0.2 % (0.0-0.8); EOS# 0.08 X1000 (0.0-0.7); EOS% 1.2 % (0.0-10.0); HEMATOCRIT 42.8 % (42.0-52.0); HEMOGLOBIN 13.2 g/dL (14.0-18.0); IMM GRAN# 0.02 X1000 (0.0-0.04); IMM GRAN% 0.3 % (0.0-0.5); LYMPH# 1.43 X1000 (1.2-3.4); LYMPH% 22.2 % (20.5-51.1); MCH 28.5 PG (27-31); MCHC 30.8 g/dL (33-37); MCV 92.4 FL (81-99); MONO# 0.52 X1000 (0.11-0.59); MONO% 8.1 % (1.7-9.3); MPV 11.3 FL (7.4-10.4); NEUT# 4.38 X1000 (1.4-6.5); PLT 287 X1000 (130-400); RBC 4.63 XMIL (4.7-6.1); RDW 15.7 % (11.5-14.5); WBC 6.44 X1000 (4.8-10.8)
--- NOTE | 2019-07-03 06:59 | Extremity Venous Study ---
PROCEDURE NAME: Venous U/S Bilateral Legs - 06/30/2019 REFERRING PHYSICIAN: Yevgeniy. READING PHYSICIAN: Dr. Gilmore. IMAGING ANALYST: Paul. INDICATION: Elevated D-dimer. FINDINGS: The deep and superficial veins of both lower extremities were imaged throughout their course. They are compressible, patent without thrombus. INTERPRETATION: No DVT or SVT of the lower extremities. cc: MD Alissa Ramirez CRNP Omar J. Sosa-Chirinos, MD
[2019-07-03 07:10] LABS: AGAP 11; ALBUMIN 3.2 g/dL (3.5-5.0); ALKALINE PHOSPHATASE 86 U/L (32-122); BUN 13 mg/dL (8-22); CALCIUM 8.8 mg/dL (8.8-10.2); CHLORIDE 94 mmol/L (98-107); COSMO 274; ESTIMATED GFR > 60; GLUCOSE 127 mg/dL (70-104); GOT 46 U/L (10-34); GPT 79 U/L (10-44); MAGNESIUM 1.8 mg/dL (1.5-2.7); POTASSIUM 3.5 mmol/L (3.5-5.1); SODIUM 136 mmol/L (136-145); TCO2 31 mmol/L (25-35); TOTAL BILIRUBIN 0.66 mg/dL (0.20-1.00); TOTAL PROTEIN 6.5 g/dL (6.3-8.3)
[2019-07-03] MEDS: LOVENOX SUBQ SCH (08:10)
[2019-07-03] MEDS: LASIX PO SCH (08:10)
[2019-07-03] MEDS: COZAAR PO SCH (08:10)
[2019-07-03] MEDS: COREG PO SCH (08:10)
[2019-07-03] MEDS: ALDACTONE PO SCH (08:10)
[2019-07-03] MEDS: ASPIRIN PO SCH (08:10)
[2019-07-03 15:22] VITALS: BP 116/84
--- NOTE | 2019-07-04 16:00 | DISCHARGE SUMMARY ---
ADMISSION DATE: 06/30/2019 DISCHARGE DATE: 07/03/2019 CONSULTATION DURING THIS ADMISSION: None. INVASIVE PROCEDURES DONE DURING THIS ADMISSION: None. IMAGING STUDIES OF SIGNIFICANCE: 1. Chest x-ray which was done on 06/30/2019 showed cardiomegaly with possible mild interstitial edema. 2. Extremity venous Doppler showed no DVT or SVT. 3. Perfusion lung scan showed no evidence of pulmonary emboli. 4. A repeat chest x-ray showed cardiomegaly with pulmonary edema. ADMISSION DIAGNOSIS: 1. Acute on chronic congestive heart failure. 2. History of coronary artery disease. 3. Chronic obstructive pulmonary disease. DIAGNOSIS AT THE TIME OF DISCHARGE: 1. Acute hypoxemic respiratory failure on presentation secondary to pulmonary edema. 2. Pulmonary edema due to congestive heart failure exacerbation. 3. Dilated nonischemic and ischemic cardiomyopathy with ejection fraction of 20% on echo done on 02/25/2019. 4. History of coronary artery disease status post stent in left anterior descending. 5. Transaminitis secondary to congestive hepatopathy. 6. Remote history of chronic obstructive pulmonary disease, currently not in exacerbation. 7. Dyslipidemia. DISCHARGE MEDICATIONS: 1. Aspirin 325 p.o. daily. 2. Carvedilol 6.25 b.i.d. 3. Spironolactone 25 mg p.o. daily. 4. Losartan 25 mg p.o. daily. 5. Furosemide 40 mg p.o. daily. 6. Atorvastatin 40 mg p.o. daily. PRESENTING COMPLAINT: Cough, swelling of the lower extremities. HISTORY OF PRESENTING COMPLAINT: Mr. Ross is a 44-year-old male who is known to be COPD, chronic congestive heart failure, coronary artery disease, does not seem to be very compliant with medications, came into the emergency room because of cough, shortness of breath and lower extremity edema. He was worked up and was found to have a pro B of 4900, which has been the most it has been elevated since he has been documented in the hospital. Mr. Ross was admitted to the [facility] for medical care. HOSPITAL COURSE: Mr. Ross was started on IV diuretic therapy and his heart medications. Throughout the hospital course he continued to diurese very adequately. He had a total negative balance of 7834 by the time he got discharged and he had lost about 10 pounds during the hospital course. His shortness of breath got remarkably better and his lower extremity swelling completely resolved. This morning he refers to be feeling a lot better. He did request that we gave him prescription just for 1 month but with multiple refills so he can be able to buy them. He improved in the short possible time so there was no need to get subspecialties involved and he did not develop any further complications during the hospital course. This morning, Mr. Ross refers to be doing well. He denies any new complaints. His current vitals: Blood pressure is 116/84, pulse of 94, respiration is 18, temperature 97.9 degrees. The patient is saturating 98% on room air. We think he is fairly stable for discharge. He has been advised to follow up with Cardiology. Dr. Starkey's information have already been given to him and he voiced understanding. I he has also been advised on medication compliance. DISCHARGE INSTRUCTIONS: All the discharge instructions discussed with him. He voiced understanding. TIME SPENT: Time spent for discharge is 35 minutes. cc: MD Mitesh Harrison MD William D. Denney, MD
== END 2019-07-03 16:15 | disposition home or self-care (01) | DRG 291 ==
LOC: ED 05:25 → SUATTDRO 08:51 → EDIPHOLD 08:51 → 2N 14:22
PROVIDERS: ADMIT Internal Medicine; ATTEND Internal Medicine